=== PATIENT | male | born 1940 | race Hispanic/Latino ===

== ENCOUNTER 2018-12-14 09:44 | Observation (INO) | payer MEDICARE, OTHER ==
--- NOTE | 2018-12-14 10:19 | ED PDOC ---
Arrival/HPI - General Chief Complaint: Cough, Cold, Congestion Time Seen by Provider: 12/14/18 10:10 Historian: Patient - History of Present Illness Narrative History of Present Illness (Text): 12/14/18 10:10 78 y/o male, pmh including gout/alzheimer?/Echo from 11/14/2017 show pulmonary htn with LVEF 55%, allergic to sulfa, c/o cough x 1 week with sob on exertion. Pt. stated that he has been coughing x 1 week, productive coughing, sob on exertion, went to the [facility] urgent care and advised to come to the ER for evaluation. Pt. is here at the ER with ekg performed show new onset a.fibb with rate control 84 bpm, no chest pain or palpitation, no numbness or tingling, no tearing pain, no night sweat, no other medical or psychological complaints. PMD: Dr. Fred Najera. Past Medical History - Provider Review Nursing Documentation Reviewed: Yes Primary Care Provider: Fred Brown - Infectious Disease Hx of Infectious Diseases: None - Cardiac Hx Heart Murmur: Yes Other/Comment: goes to Cardiac rehab 3xweekly - Neurological Hx Dementia: Yes - Musculoskeletal/Rheumatological Hx Gout: Yes - Psychiatric Hx Substance Use: No - Surgical History Hx Orthopedic Surgery: Yes (knee sx) Other/Comment: Lap band surgery - Anesthesia Hx Anesthesia: Yes Hx Anesthesia Reactions: Yes ("frozen bladder & intestines") Family/Social History - Physician Review Nursing Documentation Reviewed: Yes Family/Social History: Unknown Family HX Smoking Status: Never Smoked Hx Alcohol Use: No Hx Substance Use: No Allergies/Home Meds Allergies/Adverse Reactions: Allergies Sulfa (Sulfonamide Antibiotics) Allergy (Verified 12/14/18 09:53) RASH Home Medications: Home Meds Medication Instructions Recorded Confirmed Allopurinol [Zyloprim] 300 mg PO DAILY 12/14/18 12/14/18 Aspirin [Aspirin Chewable] 81 mg PO DAILY 12/14/18 12/14/18 Gabapentin [Neurontin] 300 mg PO DAILY 12/14/18 12/14/18 Memantine [Namenda] 10 mg PO DAILY 12/14/18 12/14/18 Primidone [Mysoline] 50 mg PO DAILY 12/14/18 12/14/18 Review of Systems - Review of Systems Constitutional: absent: Fatigue, Fevers Eyes: absent: Vision Changes ENT: absent: Hearing Changes Respiratory: SOB, Cough, Sputum. absent: Wheezing Cardiovascular: absent: Chest Pain, Syncope Gastrointestinal: absent: Abdominal Pain, Diarrhea, Nausea, Vomiting Musculoskeletal: absent: Arthralgias, Back Pain Skin: absent: Rash, Pruritis, Skin Lesions Hemo/Lymphatic: absent: Adenopathy, Easy Bleeding, Easy Bruising Psychiatric: absent: Anxiety, Depression, Suicidal Ideation Physical Exam Vital Signs Reviewed: Yes Vital Signs Temp Pulse Resp BP Pulse Ox 12/14/18 09:54 98.3 F 88 18 152/97 H 95 Temperature: Afebrile Blood Pressure: Normal Pulse: Regular Respiratory Rate: Normal Appearance: Positive for: Well-Appearing, Non-Toxic, Comfortable Pain Distress: None Mental Status: Positive for: Alert and Oriented X 3 - Systems Exam Head: Present: Atraumatic, Normocephalic Pupils: Present: PERRL Extroacular Muscles: Present: EOMI Conjunctiva: Present: Normal Mouth: Present: Moist Mucous Membranes Neck: Present: Normal Range of Motion Respiratory/Chest: Present: Clear to Auscultation, Good Air Exchange, Rhonchi. No: Respiratory Distress, Accessory Muscle Use, Wheezes, Decreased Breath Sounds, Rales, Retracting, Tachypneic, Tender to Palpation Cardiovascular: Present: Irregular Rhythm, Peripheal Pulses Present, Other (no pedal edema) Abdomen: Present: Normal Bowel Sounds. No: Tenderness, Distention, Peritoneal Signs, Rebound, Guarding, Rovsing's Sign Present, Scars Back: Present: Normal Inspection. No: CVA Tenderness, Midline Tenderness, Paraspinal Tenderness, Decubitus Ulcer Upper Extremity: Present: Normal Inspection. No: Cyanosis, Edema Lower Extremity: Present: Normal Inspection. No: Edema Neurological: Present: GCS=15, CN II-XII Intact, Speech Normal, Motor Func Grossly Intact, Normal Cerebellar Funct, Gait Normal, Memory Normal Skin: Present: Warm, Dry, Normal Color. No: Rashes Psychiatric: Present: Alert, Oriented x 3, Normal Insight, Normal Concentration Medical Decision Making ED Course and Treatment: 12/14/18 10:25 -labs -ekg -cxr -oxygen 2L -aspirin -classroom monitor -Observe and reassess 12/14/18 11:16 -Echo from 11/14/2017 show pulmonary htn with LVEF 55% -EKG: Katharinefibb @ 84 BPM, T wave inversion V2-V5, no ST elevation or depression, no T wave inversion. -Based on the [id number], he will need to be anticoagulated. Lovenox ordered. Pt. has no black or brown color stool, no rectal bleeding, refused guiac, -Chest xray There is a minimal patchy infiltrate in the right lower lobe. No evidence of CHF -Labs show no acute findings -Trop is negative -BNP 901, no signs of CHF, likely heart strain -I spoke to Dr. Najera and he examined the patient in person, agreed to admit the patient with Dr. Angulo on the routine consult. IV rocephine and azithromycin started. Lovenox ordered Disposition/Present on Arrival - Present on Arrival Any Indicators Present on Arrival: No History of DVT/PE: No History of Uncontrolled Diabetes: No Urinary Catheter: No History of Decub. Ulcer: No History Surgical Site Infection Following: None - Disposition Have Diagnosis and Disposition been Completed?: Yes Diagnosis: Pneumonia, Atrial fibrillation Disposition: HOSPITALIZED Disposition Time: 11:33 Patient Plan: Admission, Observation, Telemetry Condition: GUARDED
[2018-12-14 10:55] LABS: BASO # 0.03 K/mm3 (0.0-2.0); BASO % 0.4 % (0.0-3.0); EOS # 0.1 (0.0-0.7); EOS % 1.9 % (1.5-5.0); HEMOGLOBIN 14.9 g/dL (14.0-18.0); LYMPH # 1.3 (1.2-3.4); LYMPH % 17.3 % (22.0-35.0); MEAN CELL VOLUME 93.7 fl (80.0-105.0); MEAN CORPUSCULAR HEMOGLOBIN 31.4 pg (25.0-35.0); MEAN CORPUSCULAR HGB CONC 33.5 g/dl (31.0-37.0); MONO # 0.9 (0.1-0.6); MONO % 11.5 % (1.0-6.0); RBC 4.75 10^6/uL (3.5-6.1); RED CELL DISTRIBUTION WIDTH 14.7 % (11.5-14.5); WHITE BLOOD COUNT 7.4 10^3/uL (4.5-11.0)
[2018-12-14 10:58] LABS: ALB/GLOB RATIO 1.4 (1.1-1.8); ALBUMIN 4.3 g/dL (3.0-4.8); ALT/SGPT 24 U/L (7-56); AST/SGOT 28 U/L (17-59); BLOOD UREA NITROGEN 20 mg/dL (7-21); CALCIUM 9.1 mg/dL (8.4-10.5); GFR NON-AFRICAN AMERICAN > 60
--- NOTE | 2018-12-14 11:00 | RAD ---
Date of service: 12/14/2018 HISTORY: cough x 1 week, new onset a.fibb, chf? COMPARISON: No prior. TECHNIQUE: 1 view obtained. FINDINGS: LUNGS: There is a minimal patchy infiltrate in the right lower lobe PLEURA: No significant pleural effusion identified, no pneumothorax apparent. CARDIOVASCULAR: Minimal aortic calcification Normal cardiac size. No pulmonary vascular congestion. OSSEOUS STRUCTURES: No significant abnormalities. VISUALIZED UPPER ABDOMEN: Normal. OTHER FINDINGS: None. IMPRESSION: There is a minimal patchy infiltrate in the right lower lobe. No evidence of CHF
[2018-12-14 11:04] LABS: INR 1.04; PARTIAL THROMBOPLASTIN TIME 26.8 Seconds (26.9-38.3); PROTHROMBIN TIME 11.8 SECONDS (9.4-12.5)
[2018-12-14 11:10] LABS: B-TYPE NATRIURETIC PEPTIDE 901 pg/mL (0-450); TROPONIN I < 0.01 ng/mL
[2018-12-14] MEDS ORDERED: Azithromycin 500MG/NS 250ml 500 MG/250 ML BAG IVPB STA (11:13)
[2018-12-14] MEDS ORDERED: cefTRIAXone 1 gm 1 GM/100 ML BAG IVPB STA (11:13)
[2018-12-14 11:15] LABS: FREE T4 0.87 ng/dL (0.78-2.19)
[2018-12-14] MEDS ORDERED: Enoxaparin 150 mg Syringe SC STA (11:32)
[2018-12-14] MEDS ORDERED: Albuterol-Ipratrop 3 mg / 0.5 (3 ml) UD IH PRN (11:52)
--- NOTE | 2018-12-14 12:56 | CP.PCM.HP ---
<Prasad Cohn - Last Filed: 12/14/18 17:19> History of Present Illness - History of Present Illness History of Present Illness: H&P for Dr. Brown Service CC: productive cough and SOB with exertion HPI: 78 M with a PMHx of gout, pulmonary HTN, [place] [facility] [place] visiting [place] care center. Patient has had a productive cough for approximately 1 week, generally with whitish sputum. Patient also noted dyspnea on exertion that prompted him to visit the urgent care, and subsequently was sent to [place] [facility] Patient while in ED, EKG showed new onset a fib without RVR. Patient was seen and examined at bedside. Patient denied fevers, chills, chest pains, abdominal pains , nausea, vomiting, diarrhea, constipation or dysuria. PMHx: gout, pulmonary HTN, heart murmur PSHx: Knee repair, lap band surgery, cholecystectomy SHx: occasional wine, never smoked tobacco, denied illicit drugs FamHx: NC Meds: MAR reviewed Allergies: Sulfa Present on Admission - Present on Admission Any Indicators Present on Admission: No Review of Systems - Review of Systems Review of Systems: as per HPI otherwise negative Past Patient History - Infectious Disease Hx of Infectious Diseases: None - Past Social History Smoking Status: Never Smoked - CARDIAC Hx Heart Murmur: Yes Other/Comment: goes to Cardiac rehab 3xweekly - NEUROLOGICAL Hx Dementia: Yes - MUSCULOSKELETAL/RHEUMATOLOGICAL Hx Gout: Yes - PSYCHIATRIC Hx Substance Use: No - SURGICAL HISTORY Hx Orthopedic Surgery: Yes (knee sx) Other/Comment: Lap band surgery - ANESTHESIA Hx Anesthesia: Yes Hx Anesthesia Reactions: Yes ("frozen bladder & intestines") Meds Allergies/Adverse Reactions: Allergies Allergy/AdvReac Type Severity Reaction Status Date / Time Sulfa (Sulfonamide Allergy RASH Verified 12/14/18 09:53 Antibiotics) Physical Exam - Constitutional Appears: No Acute Distress - Head Exam Head Exam: ATRAUMATIC, NORMAL INSPECTION, NORMOCEPHALIC - Eye Exam Eye Exam: EOMI, Normal appearance, PERRL Pupil Exam: NORMAL ACCOMODATION, PERRL - ENT Exam ENT Exam: Mucous Membranes Moist, Normal Exam - Neck Exam Neck exam: Positive for: Normal Inspection - Respiratory Exam Respiratory Exam: Decreased Breath Sounds, Rhonchi, NORMAL BREATHING PATTERN. absent: Respiratory Distress - Cardiovascular Exam Cardiovascular Exam: Irregular Rhythm, +S1, +S2 - GI/Abdominal Exam GI & Abdominal Exam: Normal Bowel Sounds, Soft. absent: Tenderness - Extremities Exam Extremities exam: Positive for: pedal edema (trace b/l) - Neurological Exam Neurological exam: Alert, CN II-XII Intact, Normal Gait, Oriented x3, Reflexes Normal - Psychiatric Exam Psychiatric exam: Normal Affect, Normal Mood - Skin Skin Exam: Dry, Intact, Normal Color, Warm Results - Vital Signs Recent Vital Signs: Last Vital Signs Temp 98.3 F 12/14/18 09:54 Pulse 88 12/14/18 09:54 Resp 18 12/14/18 09:54 BP 152/97 H 12/14/18 09:54 Pulse Ox 95 12/14/18 09:54 - Labs Result Diagrams: 12/14/18 10:33 12/14/18 10:33 Labs: Laboratory Results - last 24 hr 12/14/18 12/14/18 12/14/18 10:33 10:33 10:33 WBC 7.4 RBC 4.75 Hgb 14.9 Hct 44.5 MCV 93.7 D MCH 31.4 MCHC 33.5 RDW 14.7 H Plt Count 179 MPV 11.0 Neut % (Auto) 68.9 H Lymph % (Auto) 17.3 L Guadalupe % (Auto) 11.5 H Eos % (Auto) 1.9 Baso % (Auto) 0.4 Lymph # (Auto) 1.3 Guadalupe # (Auto) 0.9 H Eos # (Auto) 0.1 Baso # (Auto) 0.03 Absolute Neuts (auto) 5.09 PT 11.8 INR 1.04 APTT 26.8 L Sodium 139 Potassium 4.2 Chloride 103 Carbon Dioxide 27 Anion Gap 13 BUN 20 Creatinine 0.9 Est GFR ( Amer) > 60 Est GFR (Non-Af Amer) > 60 Random Glucose 88 Calcium 9.1 Magnesium 1.9 Total Bilirubin 0.8 AST 28 ALT 24 Alkaline Phosphatase 91 Troponin I < 0.01 NT-Pro-B Natriuret Pep 901 H Total Protein 7.4 Albumin 4.3 Globulin 3.1 Albumin/Globulin Ratio 1.4 Free T4 TSH 3rd Generation 12/14/18 10:33 WBC RBC Hgb Hct MCV MCH MCHC RDW Plt Count MPV Neut % (Auto) Lymph % (Auto) Guadalupe % (Auto) Eos % (Auto) Baso % (Auto) Lymph # (Auto) Guadalupe # (Auto) Eos # (Auto) Baso # (Auto) Absolute Neuts (auto) PT INR APTT Sodium Potassium Chloride Carbon Dioxide Anion Gap BUN Creatinine Est GFR ( Amer) Est GFR (Non-Af Amer) Random Glucose Calcium Magnesium Total Bilirubin AST ALT Alkaline Phosphatase Troponin I NT-Pro-B Natriuret Pep Total Protein Albumin Globulin Albumin/Globulin Ratio Free T4 0.87 TSH 3rd Generation 1.83 Assessment & Plan - Assessment and Plan (Free Text) Assessment: New onset afib rate controlled Rt Lower lobe pna Cardiac rehab heeart murmur gout pulmonary htn dementia essential tremor Plan: Patient admitted to tele for monitoring of new onset afib. Patient anticoagulation initiated, will obtain echo. Dr. Angulo consulted, will appreciate recommendations. Rocephin and azithromycin for rt lower lobe pna, follow up sputum cx, blood cx, no leukocytosis. FU cxr. Patient on allopurinol for gout, memantine for dementia. primadone for essential tremors. Duonebs for dyspnea. Robitussin for cough. Heart healthy diet. PT eval Discussed with Dr. Brown <Fred Brown S - Last Filed: 12/14/18 19:58> Results - Vital Signs Recent Vital Signs: Last Vital Signs Temp 98.6 F 12/14/18 17:26 Pulse 80 12/14/18 18:00 Resp 19 12/14/18 17:26 BP 147/89 12/14/18 18:34 Pulse Ox 95 12/14/18 09:54 - Labs Result Diagrams: 12/14/18 10:33 12/14/18 10:33 Labs: Laboratory Results - last 24 hr 12/14/18 12/14/18 12/14/18 10:33 10:33 10:33 WBC 7.4 RBC 4.75 Hgb 14.9 Hct 44.5 MCV 93.7 D MCH 31.4 MCHC 33.5 RDW 14.7 H Plt Count 179 MPV 11.0 Neut % (Auto) 68.9 H Lymph % (Auto) 17.3 L Guadalupe % (Auto) 11.5 H Eos % (Auto) 1.9 Baso % (Auto) 0.4 Lymph # (Auto) 1.3 Guadalupe # (Auto) 0.9 H Eos # (Auto) 0.1 Baso # (Auto) 0.03 Absolute Neuts (auto) 5.09 PT 11.8 INR 1.04 APTT 26.8 L Sodium 139 Potassium 4.2 Chloride 103 Carbon Dioxide 27 Anion Gap 13 BUN 20 Creatinine 0.9 Est GFR ( Amer) > 60 Est GFR (Non-Af Amer) > 60 Random Glucose 88 Calcium 9.1 Magnesium 1.9 Total Bilirubin 0.8 AST 28 ALT 24 Alkaline Phosphatase 91 Troponin I < 0.01 NT-Pro-B Natriuret Pep 901 H Total Protein 7.4 Albumin 4.3 Globulin 3.1 Albumin/Globulin Ratio 1.4 Free T4 TSH 3rd Generation 12/14/18 12/14/18 10:33 15:44 WBC RBC Hgb Hct MCV MCH MCHC RDW Plt Count MPV Neut % (Auto) Lymph % (Auto) Guadalupe % (Auto) Eos % (Auto) Baso % (Auto) Lymph # (Auto) Guadalupe # (Auto) Eos # (Auto) Baso # (Auto) Absolute Neuts (auto) PT INR APTT Sodium Potassium Chloride Carbon Dioxide Anion Gap BUN Creatinine Est GFR ( Amer) Est GFR (Non-Af Amer) Random Glucose Calcium Magnesium Total Bilirubin AST ALT Alkaline Phosphatase Troponin I < 0.01 NT-Pro-B Natriuret Pep Total Protein Albumin Globulin Albumin/Globulin Ratio Free T4 0.87 TSH 3rd Generation 1.83 Assessment & Plan - Assessment and Plan (Free Text) Assessment: Pt seen and examined by me. I have reviewed the note of the medical claims processor and I agree with it. I have discussed the assessment and plan with the resident. I have reviewed the medications and the last labs.
[2018-12-14 16:14] VITALS: BMI 38.2
[2018-12-14] MEDS ORDERED: Pneumococcal 23-Valent Vaccine IM ONE (16:17)
[2018-12-14] MEDS ORDERED: guaiFENesin DM 200 mg-20 mg/10 ml UD PO PRN (18:02)
[2018-12-14] MEDS ORDERED: Enoxaparin 150 mg Syringe SC SCH (22:00)
--- NOTE | 2018-12-14 22:17 | CARD ---
APPROVED REPORT Date of service: 12/14/2018 EKG Measurement Heart [id number] <Conclusion> Atrial fibrillation Nonspecific T wave abnormalitis Abnormal ECG
--- NOTE | 2018-12-14 23:24 | CON ---
DATE: 12/14/2018 CONSULT SERVICE: Cardiology. REASON FOR CONSULTATION: Followup of productive cough, shortness of breath on exertion, new onset of atrial fibrillation, and cardiac evaluation. BRIEF CLINICAL HISTORY: This 78-year-old male with past medical history significant for gout, pulmonary hypertension, obstructive sleep apnea was on CPAP, did not use for the last 10 years, recently seen by Dr. Carrillo, restarted, but did not like it and so did not use, who came to the emergency room after being brought by the who is a retired RN because the patient was having productive cough, dyspnea on exertion, and shortness of breath. Patient was taken to the urgent care center where he was told that the patient has congestive heart failure and needs to be seen by a inclusion paraeducator, but patient waited and ultimately came to the [facility]. EKG on admission to the ER, found to be in AFib with rapid ventricular rate. Patient denies any chest pain. Denies any palpitations. PAST MEDICAL HISTORY: Significant for gout, pulmonary hypertension, heart murmur when he was young. PAST SURGICAL HISTORY: Significant for gastric bypass many years ago, cholecystectomy 8 years ago, total knee joint replacement, left 5 years ago. SOCIAL HISTORY: Denies any smoking. Denies any alcohol abuse. Denies any substance abuse. Socially drinks. FAMILY HISTORY: Noncontributory. CURRENT MEDICATIONS: Patient is taking primidone 50 mg daily, Namenda 10 mg daily, gabapentin, Neurontin 300 mg daily, aspirin 325 mg daily, allopurinol 300 mg daily. REVIEW OF SYSTEMS: As per HPI. PHYSICAL EXAMINATION: GENERAL: Height of the patient 6 feet 2 inches, weight of the patient 298 pounds, and body mass index 38.3 kg/m2. VITAL SIGNS: Temperature afebrile, heart rate 85, and blood pressure 147/89. HEENT: PERRLA. Extraocular muscles intact. NECK: Supple. No carotid bruits or thyromegaly. CHEST: Clear to auscultation. HEART: S1 and S2 regular. ABDOMEN: Soft. EXTREMITIES: Clubbing and cyanosis negative. LABORATORY DATA: WBC 7.4, hemoglobin 14.9, hematocrit 44.5, and platelet count 179. Chemistry shows sodium 139, potassium 4, chloride 103, CO2 of 27, anion gap 13, BUN 20, and creatinine 0.9. Troponin is 0.01 negative. BNP 908. Chest x-ray; very poor under-penetrated films, unable to comment, but aptly does not looks like any pulmonary edema. Patient's previous cardiac workup on 11/14/2017 shows pulmonary hypertension with ejection fraction 55%, read by Dr. Pantoja. Echo on 11/14/2017 showed ejection fraction 55%, normal LV function, [id number] mitral regurgitation, mild tricuspid regurgitation, RV systolic pressure 40. IMPRESSION: A 78-year-old morbidly obese male with past medical history significant for obstructive sleep apnea, gout, admitted with one-week history of coughing and bronchitis type of symptoms, and admitted with shortness of breath. Chest x-ray poor quality, cannot comment on congestive heart failure if it is very mild, BNP 900, few basal crackles. Prior history of obstructive sleep apnea, noncompliance with the continuous positive airway pressure machine, not using for more than 8 years. Recently seen by Dr. Carrillo, started, but the patient did not follow up and is not using continuous positive airway pressure. Admitted with acute bronchitis symptoms and maybe some element of congestive heart failure. PATIENT IS ALLERGIC TO SULFA, we will start Bumex. New onset of atrial fibrillation stress can cause congestive heart failure, by acute bronchitis symptoms. RECOMMENDATIONS: Broad-spectrum antibiotics to treat the acute bronchitis. We will start a low dose of Bumex, get echo, lipid profile, TSH and hemoglobin A1c. CHADS2 score will be high and so we will start anticoagulation. Consider a stress test on Monday if the troponin remains flat; so far, troponin remains x2 negative. No evidence of acute ID. No anginal symptoms. If troponin remains flat, we will consider a stress test on Monday. Further recommendations will depend on the hospital course. We will follow with you. Thank you Dr. Zeng, for providing us the opportunity in taking care of the patient, Thomas Cantrell. Shannen Angulo MD
--- NOTE | 2018-12-15 00:34 | HP ---
DATE OF EXAM: 12/14/2018 HISTORY OF PRESENT ILLNESS: The patient was seen and examined. I do agree with the note of the medical technologist generalist. I was involved in the plan of care. The patient was having productive cough and shortness of breath. He said the cough is getting worse. He had gone to an urgent care center and was not feeling well, so he was sent to the emergency room. EKG done showed new onset atrial fibrillation without rapid rate. He was admitted to the hospital for further evaluation. PLAN: The patient will be started on anticoagulation. Dr. Angulo from Cardiology has been consulted. The patient's , Isabel, a natural resources extension educator in the hospital was updated. The patient has trace edema in his legs. stable. He is going to be placed on Rocephin and azithromycin for right lower lobe pneumonia. The patient has gout history. He is currently comfortable. He is going to be on aspirin for his coronary disease. He is receiving nebulizer treatments. He is going to be on allopurinol for his gout. Fred Brown MD
[2018-12-15 05:45] VITALS: O2SAT 96
[2018-12-15 07:22] LABS: BASO # 0.04 K/mm3 (0.0-2.0); BASO % 0.6 % (0.0-3.0); EOS # 0.2 (0.0-0.7); EOS % 2.2 % (1.5-5.0); HEMOGLOBIN 14.7 g/dL (14.0-18.0); LYMPH # 1.2 (1.2-3.4); LYMPH % 16.8 % (22.0-35.0); MEAN CORPUSCULAR HEMOGLOBIN 30.4 pg (25.0-35.0); MEAN CORPUSCULAR HGB CONC 32.3 g/dl (31.0-37.0); MONO # 0.7 (0.1-0.6); MONO % 10.8 % (1.0-6.0); RBC 4.84 10^6/uL (3.5-6.1); RED CELL DISTRIBUTION WIDTH 14.6 % (11.5-14.5); WHITE BLOOD COUNT 6.8 10^3/uL (4.5-11.0)
[2018-12-15 07:30] LABS: INR 1.17; PARTIAL THROMBOPLASTIN TIME 32.9 Seconds (26.9-38.3); PROTHROMBIN TIME 13.2 SECONDS (9.4-12.5)
[2018-12-15 07:35] LABS: ALB/GLOB RATIO 1.4 (1.1-1.8); ALBUMIN 4.4 g/dL (3.0-4.8); ALT/SGPT 27 U/L (7-56); AST/SGOT 28 U/L (17-59); BLOOD UREA NITROGEN 18 mg/dL (7-21); CALCIUM 9.1 mg/dL (8.4-10.5); GFR NON-AFRICAN AMERICAN > 60; HDL CHOLESTEROL 57 mg/dL (29-60)
[2018-12-15 07:45] LABS: LDL CHOLESTEROL 77 mg/dL (0-129)
--- NOTE | 2018-12-15 08:12 | CP.PCM.PN ---
Subjective - Date & Time of Evaluation Date of Evaluation: 12/15/18 Time of Evaluation: 06:55 - Subjective Subjective: Awake, feels okay,no distress Reason for consultation and follow up: Cardiac evaluation and follow up of new onset atrial fibrillation, admitted for shortness of breath Seen and examined by me and Dr. Beaulieu Objective - Vital Signs/Intake and Output Vital Signs (last 24 hours): Temp Pulse Resp BP Pulse Ox 98.7 F 75 20 114/73 96 12/15/18 05:44 12/15/18 05:44 12/15/18 05:44 12/15/18 05:44 12/15/18 05:44 Intake and Output: 12/15/18 12/15/18 06:59 18:59 Intake Total 958 Balance 958 - Medications Medications: Current Medications Albuterol/Ipratropium (Duoneb 3 Mg/0.5 Mg (3 Ml) Ud) 3 ml IH Q2H PRN PRN Reason: Shortness of Breath Allopurinol (Zyloprim) 300 mg PO DAILY DALIA Apixaban (Eliquis) 5 mg PO BID [facility]; Protocol Last Admin: 12/14/18 18:06 Dose: 5 mg Aspirin (Ecotrin) 81 mg PO DAILY DALIA Furosemide (Lasix) 40 mg IV DAILY DALIA Guaifenesin/Dextromethorphan (Robitussin Dm) 10 ml PO Q4H PRN PRN Reason: Cough Ceftriaxone Sodium (Rocephin 1 Gram Ivpb) 1 gm in 100 mls @ 100 mls/hr IVPB DAILY [facility]; Protocol Azithromycin (Zithromax 500mg In Ns) 500 mg in 250 mls @ 167 mls/hr IVPB DAILY DALIA; Protocol Memantine (Namenda) 10 mg PO DAILY DALIA Primidone (Mysoline) 50 mg PO HS [facility] Last Admin: 12/14/18 21:44 Dose: 50 mg - Labs Labs: 12/15/18 06:30 12/15/18 06:30 PT 13.2 SECONDS (9.4-12.5) H 12/15/18 06:30 INR 1.17 12/15/18 06:30 APTT 32.9 Seconds (26.9-38.3) 12/15/18 06:30 - Constitutional Appears: Non-toxic, No Acute Distress - Head Exam Head Exam: NORMAL INSPECTION, NORMOCEPHALIC - Eye Exam Eye Exam: Normal appearance Pupil Exam: NORMAL ACCOMODATION - ENT Exam ENT Exam: Mucous Membranes Moist, Normal Exam - Respiratory Exam Respiratory Exam: Decreased Breath Sounds, NORMAL BREATHING PATTERN - Cardiovascular Exam Cardiovascular Exam: Irregular Rhythm, +S1, +S2 Additional comments: Atrial fibrillation 70's - GI/Abdominal Exam GI & Abdominal Exam: Soft, Normal Bowel Sounds - Extremities Exam Extremities Exam: Full ROM, Normal Capillary Refill - Neurological Exam Neurological Exam: Alert, Awake, Oriented x3 - Psychiatric Exam Psychiatric exam: Normal Affect, Normal Mood - Skin Skin Exam: Dry, Normal Color, Warm Assessment and Plan - Assessment and Plan (Free Text) Assessment: A 78 year old morbidly obese male who was [place] [facility] [place] care due to atrial fibrillation on EKG. He was at urgent care center due to productive cough x 1 week. History of hypertension, obstructive sleep apnea with CPAP but not compliant for the past 10 years, pulmonary hypertension, gout, gastric bypass, cholecystectomy,total left knee joint replacement. Chest X ray showed no vascular congestion, right lower lobe infiltrate. Admitted for new onset atrial fibrillation and pneumonia. IV antibiotics started. Eliquis started for atrial fibrillation. Atrial fibrillation rate controlled. Troponin remains negative. Cardiac status stable. For Echo today to evaluate LV function. May discharge patient from cardiac standpoint. Will schedule for out patient stress test. Will reevaluate atrial fibrillation in the office and if still Afib, will schedule for ST[facility]LEY with cardioversion. Plan: Denies shortness of breath, some coughing Heart rate controlled, atrial fibrillation 70's On Eliquis Blood pressure stable Cardiac status stable On Eliquis 5 mg BID,ASA 81 mg daily, Lasix 40 mg daily Continue IV antibiotics as ordered For Echo today to evaluate LV function. Continue current treatment Continue current medications May discharge patient from cardiac standpoint Will schedule for out patient stress test. Follow up in office 2-3 weeks plan and treatment discussed with Dr. Beaulieu
[2018-12-15] MEDS ORDERED: cefTRIAXone 1 gm 1 GM/100 ML BAG IVPB SCH (10:00)
[2018-12-15] MEDS ORDERED: Azithromycin 500MG/NS 250ml 500 MG/250 ML BAG IVPB SCH (10:00)
[2018-12-15 12:46] VITALS: BP 107/73; PULSE 70; RESP 18; TEMP 97.7
--- NOTE | 2018-12-15 15:30 | CARD ---
APPROVED REPORT Date of service: 12/15/2018 EXAM: Two-dimensional and M-mode echocardiogram with Doppler and color Doppler. INDICATION Atrial Fibrillation 2D DIMENSIONS Left Atrium (2D)4.8 (1.6-4.0cm)IVSd1.1 (0.7-1.1cm) LVDd4.3 (3.9-5.9cm)PWd1.2 (0.7-1.1cm) LVDs2.9 (2.5-4.0cm)FS (%) 31.9 % LVEF (%)60.4 (>50%) M-Mode DIMENSIONS Aortic Root3.70 (2.2-3.7cm)Aortic Cusp Exc.1.60 (1.5-2.0cm) Aortic Valve AoV Peak Kzigtnmy349.0cm/Twyla Peak GR.6mmHg Mitral Valve E/A ratio0.0 TDI E/Lateral E'0.0E/Medial E'0.0 Pulmonary Valve PV Peak Eiteifje79.4cm/sPV Peak Grad.3mmHg Tricuspid Valve TR Peak Bwqtqxds755mn/sRAP [id number] Peak Gr.25mmHg [id number] LEFT VENTRICLE The left ventricle is normal size. There is normal left ventricular wall thickness. The left ventricular function is normal. The left ventricular ejection fraction is within the normal range. There is normal LV segmental wall motion. A Fib RIGHT VENTRICLE The right ventricle is normal size. There is normal right ventricular wall thickness. The right ventricular systolic function is normal. ATRIA The left atrium is mildly dilated. The right atrium size is normal. AORTIC VALVE The aortic valve is mildly sclerotic. No aortic regurgitation is present. There is no aortic valvular stenosis. MITRAL VALVE The mitral valve is mildly thickened. There is no mitral valve regurgitation noted. There is no mitral valve stenosis. TRICUSPID VALVE There is mild tricuspid regurgitation. There is mild pulmonary hypertension. PULMONIC VALVE The pulmonary valve is normal in structure. There is trace pulmonic valvular regurgitation. GREAT VESSELS The aortic root is normal in size. The IVC is normal in size and collapses >50% with inspiration. PERICARDIAL EFFUSION There is no pericardial effusion. <Conclusion> The left ventricle is normal size. There is normal left ventricular wall thickness. The left ventricular function is normal. The left ventricular ejection fraction is within the normal range. There is normal LV segmental wall motion. There is mild tricuspid regurgitation. There is mild pulmonary hypertension.
--- NOTE | 2018-12-15 16:12 | RAD ---
Date of service: 12/15/2018 HISTORY: cough pna COMPARISON: 12/14/2018 TECHNIQUE: 1 view obtained. FINDINGS: LUNGS: No active pulmonary disease. PLEURA: No significant pleural effusion identified, no pneumothorax apparent. CARDIOVASCULAR: No aortic atherosclerotic calcification present. Normal cardiac size. No pulmonary vascular congestion. OSSEOUS STRUCTURES: No significant abnormalities. VISUALIZED UPPER ABDOMEN: Normal. OTHER FINDINGS: None. IMPRESSION: No active disease.
--- NOTE | 2018-12-15 20:23 | CARD ---
APPROVED REPORT Date of service: 12/15/2018 EKG Measurement Heart [id number] <Conclusion> Atrial fibrillation NDSTT abnormalities Abnormal ECG
--- NOTE | 2018-12-16 02:05 | DS ---
HOSPITAL COURSE: The patient was initially admitted to the hospital because of shortness of breath. He was found to have new onset atrial fibrillation. The patient was seen by Dr. Angulo and started on anticoagulation. The patient states he does feel well. His heart rate is controlled. He has no complaints of any headaches or dizziness. No nausea, no vomiting. He is due for stress test that is going to be done in 2 days, on Monday. He was seen by Dr. Angulo and Dr. Beaulieu. The patient was cleared to be discharged. He had a chest x-ray that was normal and so no infiltrates were seen. He does not have pneumonia. So, we will discontinue his antibiotics. PHYSICAL EXAMINATION: VITAL SIGNS: Temperature 97.7, pulse is 70, blood pressure is 107/73, respirations 18. GENERAL: The patient is lying in bed, flat, comfortable. HEENT: No oral lesion. Anicteric sclerae. Moist mucosa. NECK: No JVD, adenopathy, or thyromegaly. CARDIOVASCULAR: S1 and S2, regular. No murmurs, rubs, or gallops. LUNGS: Clear to auscultation bilaterally. No wheeze, rales, or rhonchi. ABDOMEN: Bowel sounds are positive, soft, nontender and nondistended. EXTREMITIES: No cyanosis, clubbing or edema. ASSESSMENT: 1. Atrial fibrillation, new onset. 2. Gout. 3. Pulmonary hypertension. 4. Essential tremor. 5. SULFA ALLERGY. 6. Obese with BMI of 37. PLAN: The patient is currently on Eliquis. He is going to continue as an outpatient. The patient was given Lovenox yesterday. He is on memantine for mild cognitive impairment. The patient is on Lasix. He is receiving nebulizer treatments. He is on allopurinol for his gout. CONDITION: Stable. ACTIVITIES: Increase as tolerated. Fred Brown MD
== END 2018-12-15 18:58 | disposition home or self-care (01) ==
LOC: ED 09:44 → ERH 11:14 → 2RNO 13:45
PROVIDERS: ADMIT Internal Medicine Nephrology; ATTEND Internal Medicine Nephrology
DX: I48.91 Unspecified atrial fibrillation (principal); J18.1 Lobar pneumonia, unspecified organism; J20.9 Acute bronchitis, unspecified; E66.01 Morbid (severe) obesity due to excess calories; F02.80 Dementia in other diseases classified elsewhere, unspecified severity, without behavioral disturbance, psychotic disturbance, mood disturbance, and anxiety; G25.0 Essential tremor; G30.9 Alzheimer's disease, unspecified; G47.33 Obstructive sleep apnea (adult) (pediatric); I11.0 Hypertensive heart disease with heart failure; I27.20 Pulmonary hypertension, unspecified; I50.9 Heart failure, unspecified; M10.9 Gout, unspecified; Z68.37 Body mass index [BMI] 37.0-37.9, adult; Z88.2 Allergy status to sulfonamides; Z91.19 Patient's noncompliance with other medical treatment and regimen; Z96.652 Presence of left artificial knee joint; Z98.84 Bariatric surgery status
CPT/HCPCS: 36415; 71045; 80053; 80061; 83036; 83735; 83880; 84100; 84439; 84443; 84484; 85025; 85610; 85730; 87040; 93005; 93306; 96365; 96372; 96375; 96376; 99282; G0378; J0456; J0696; J1650; J1940

== ENCOUNTER 2018-12-19 08:04 | Outpatient (CLI) | payer MEDICARE, OTHER | END 2018-12-19 08:05 | disposition home or self-care (01) | LOC: CARDIO 08:04 ==

== ENCOUNTER 2019-01-10 06:09 | Day surgery (SDC) | payer MEDICARE, OTHER ==
[2019-01-08 16:22] VITALS: BMI 37.7
--- NOTE | 2019-01-10 00:34 | HP ---
DATE OF EXAM: 01/09/2019 REASON FOR ADMISSION: Left heart cath, possible angioplasty and abnormal stress test. BRIEF CLINICAL HISTORY: This is a 78-year-old male with past medical history significant for gout, pulmonary hypertension, obstructive sleep apnea, was on CPAP, did not use for last 10 years, recently seen by Dr. Gerardo albertrted, but did not like it and did not use it, came to the emergency room after being brought by the who is a retired RN because the patient is having productive cough, dyspnea on exertion, and shortness of breath. The patient was taken to the [facility] where he was told that the patient had congestive heart failure, needs to be seen by nanoscience technician, but the patient ultimately came to the [facility]. EKG found to be AFib with rapid ventricular rate. Denies any chest pain, shortness of breath, or any palpitation. PAST MEDICAL HISTORY: Significant for gout and pulmonary hypertension. PAST SURGICAL HISTORY: Significant for gastric bypass many years ago, cholecystectomy 8 years ago, and total knee replacement left 5 years ago. SOCIAL HISTORY: Denies any smoking. Denies any history of alcohol abuse. Denies any history of substance abuse. Socially drinks. FAMILY HISTORY: Noncontributory. RECENT CARDIAC WORKUP FOLLOWS: The patient had a stress test dated on 12/19/2018 Lexiscan that shows technically suboptimal study probably abnormal myocardial perfusion study, partially reversible apical and distal inferolateral defect suspicious for ischemia, normal gated wall motion, and ejection fraction 54% dated on 12/19/2018. The patient had an echocardiography done on 12/15/2018 that revealed normal LV size, normal LV function, normal segmental wall motion, mild tricuspid regurgitation, mild pulmonary hypertension, and RV systolic pressure 35. The patient is found to be in AFib, left ventricular systolic function, and ejection fraction 60%. CURRENT MEDICATIONS: The patient is taking at home, primidone 50 mg daily, Namenda 10 mg daily, gabapentin 300 mg daily, furosemide 40 mg daily, aspirin 81 mg, Eliquis 5 mg daily, and allopurinol 300 mg p.o. daily. REVIEW OF SYSTEMS: As per HPI. PHYSICAL EXAMINATION: GENERAL: Height of the patient 6 feet 2 inches, weight of the patient 294 pounds, and body mass index 37.7 kg/m2. VITAL SIGNS: Temperature afebrile, heart rate 60, and blood pressure 134/80. HEENT: PERRLA. Extraocular muscles intact. NECK: Supple. No carotid bruits. No thyromegaly. CHEST: Clear to auscultation. HEART: S1 and S2 regular. ABDOMEN: Soft. EXTREMITIES: Clubbing and cyanosis negative. IMPRESSION AND PLAN: Abnormal stress test, atrial fibrillation, hypertension, chronic obstructive pulmonary disease, morbid obesity, history of left knee replacement, history of pulmonary hypertension, history of obstructive sleep apnea, was on continuous positive airway pressure, did not use for many years and very noncompliant. Recently started by Dr. Carrillo continuous positive airway pressure, who came in and admitted with productive cough, but the patient had started Eliquis because of atrial fibrillation, but the patient had abnormal stress test as outpatient, so he is scheduled for elective cardiac catheterization, possible angioplasty. We will load with Plavix and aspirin. Further recommendation after cardiac catheterization. The patient had Eliquis, last dose on Monday. Further recommendation will depend on the hospital course. We will follow with you. Thank you Dr. Brown for providing us the opportunity in taking care of the patient, Thomas Cantrell. Shannen Angulo MD
[2019-01-10 07:08] LABS: BASO # 0.04 K/mm3 (0.0-2.0); BASO % 0.6 % (0.0-3.0); EOS # 0.2 (0.0-0.7); EOS % 3.5 % (1.5-5.0); HEMOGLOBIN 15.4 g/dL (14.0-18.0); LYMPH # 1.9 (1.2-3.4); LYMPH % 29.4 % (22.0-35.0); MEAN CELL VOLUME 92.4 fl (80.0-105.0); MEAN CORPUSCULAR HEMOGLOBIN 30.6 pg (25.0-35.0); MEAN CORPUSCULAR HGB CONC 33.1 g/dl (31.0-37.0); MEAN PLATELET VOLUME 11.1 fl (7.0-11.0); MONO # 0.5 (0.1-0.6); MONO % 7.7 % (1.0-6.0); RBC 5.03 10^6/uL (3.5-6.1); RED CELL DISTRIBUTION WIDTH 14.1 % (11.5-14.5); WHITE BLOOD COUNT 6.3 10^3/uL (4.5-11.0)
[2019-01-10 07:14] LABS: INR 1.01; PARTIAL THROMBOPLASTIN TIME 32.5 Seconds (26.9-38.3); PROTHROMBIN TIME 11.4 SECONDS (9.4-12.5)
[2019-01-10 07:34] LABS: LDL CHOLESTEROL 100 mg/dL (0-129)
[2019-01-10] MEDS ORDERED: Lidocaine PF 2% (5 ml) Inj (For Cardiac Arrhy) ONE (07:34)
[2019-01-10] MEDS ORDERED: Iodixanol 320 MG/ML 200 ML BOTTLE IV ONE (07:34)
[2019-01-10] MEDS ORDERED: Iohexol 350mgl/ml 50 ML ONE (07:34)
[2019-01-10] MEDS ORDERED: Iodixanol 320 MG/ML 100 ML BOTTLE IV ONE (07:34)
[2019-01-10] MEDS ORDERED: Phenylephrine 10 mg/ml Inj ONE (07:35)
[2019-01-10] MEDS ORDERED: Verapamil 2 ML ONE (07:35)
[2019-01-10 07:36] LABS: BLOOD UREA NITROGEN 24 mg/dL (7-21); CALCIUM 9.4 mg/dL (8.4-10.5); GFR NON-AFRICAN AMERICAN > 60; HDL CHOLESTEROL 50 mg/dL (29-60)
[2019-01-10] MEDS ORDERED: Nitroglycerin 50mg in D5W 50 MG/250 ML BOTTLE IV ONE (07:36)
[2019-01-10] MEDS ORDERED: Midazolam 2 MG/2 ML VIAL ONE ×2 (08:09→08:40)
[2019-01-10] MEDS ORDERED: Eptifibatide 20 mg/10mL Inj IVP ONE (08:56)
[2019-01-10] MEDS ORDERED: Sodium Chloride 0.9% 1,000 ML IV SCH (09:30)
--- NOTE | 2019-01-10 10:26 | CPOSTOP ---
DATE: 01/10/2019 CARDIOVASCULAR LAB POST PROCEDURE NOTE DICTATING PHYSICIAN: Shannen Angulo MD RESEARCH TECHNICIAN: Josselyn logistics technician. TYPE OF ANESTHESIA: Moderate conscious sedation, total 3 mg of Versed and 100 of fentanyl given periodically. Started 1 mg of Versed and 50 of fentanyl. PRE-PROCEDURE DIAGNOSES: Unstable angina, develop chest pain, code STEMI activated. PROCEDURE PERFORMED: 1. Left heart catheterization. 2. Stenting of OM2, plain balloon angioplasty of OM1. FINDINGS: Two-vessel disease. FINAL DIAGNOSIS: Two-vessel disease, preserved left ventricular function. POST PROCEDURE CONDITION: The patient's condition is stable. VASCULAR ACCESS SITE: Left radial artery. CLOSURE DEVICE: TR-band. TOTAL RADIATION DOSE: 15345.2 milligray unit. CUMULATIVE DOSE: 2650 milligray unit. FLUORO TIME TOTAL: 7.8 minutes. TOTAL CONTRAST USED: 130 mL used. Shannen Angulo MD
--- NOTE | 2019-01-10 11:51 | CP.PCM.CON ---
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 Pt received a stent in OM2. Post procedure doing well, no complaints. Denies CP, sob, palpitations, SANTOS, dizziness. No other constitutional symptoms. PMHx as above PSHx knee replacement Meds as per EMR FHx NC Social Hx denies smoking, etoh, drug use ROS as above Review of Systems - Review of Systems Review of Systems: as per HPI Past Patient History - Infectious Disease Hx of Infectious Diseases: None - Past Social History Smoking Status: Never Smoked - CARDIAC Hx Pacemaker: No - NEUROLOGICAL Hx Paralysis: No - HEENT Hx HEENT Problems: No - RENAL Hx Chronic Kidney Disease: No - ENDOCRINE/METABOLIC Hx Endocrine Disorders: No - HEMATOLOGICAL/ONCOLOGICAL Hx Blood Transfusions: No - INTEGUMENTARY Hx Dermatological Problems: Yes (face flushed) - MUSCULOSKELETAL/RHEUMATOLOGICAL Hx Musculoskeletal Disorders: Yes - GASTROINTESTINAL Hx Gastrointestinal Disorders: Yes (obese) - GENITOURINARY/GYNECOLOGICAL Hx Genitourinary Disorders: No - PSYCHIATRIC Hx Emotional Abuse: No Hx Physical Abuse: No Hx Substance Use: No - SURGICAL HISTORY Hx Surgeries: Yes - ANESTHESIA Hx Anesthesia Reactions: Yes ("frozen bladder & intestines") Hx Malignant Hyperthermia: No Meds Allergies/Adverse Reactions: Allergies Allergy/AdvReac Type Severity Reaction Status Date / Time Sulfa (Sulfonamide Allergy RASH Verified 12/14/18 09:53 Antibiotics) - Medications Medications: Current Medications Allopurinol (Zyloprim) 300 mg PO DAILY DALIA Apixaban (Eliquis) 5 mg PO BID DALIA; Protocol Clopidogrel Bisulfate (Plavix) 75 mg PO DAILY DALIA Furosemide (Lasix) 40 mg PO DAILY DALIA Gabapentin (Neurontin) 300 mg PO DAILY DALIA; Protocol Sodium Chloride (Sodium Chloride 0.9%) 1,000 mls @ 100 mls/hr IV .Q10H DALIA Stop: 01/10/19 16:00 Memantine (Namenda) 10 mg PO DAILY DALIA Primidone (Mysoline) 50 mg PO HS DALIA Physical Exam - Constitutional Appears: Non-toxic, No Acute Distress - Head Exam Head Exam: NORMAL INSPECTION - Eye Exam Eye Exam: Normal appearance - ENT Exam ENT Exam: Mucous Membranes Moist - Respiratory Exam Respiratory Exam: Clear to Auscultation Bilateral, NORMAL BREATHING PATTERN - Cardiovascular Exam Cardiovascular Exam: Bradycardia, Irregular Rhythm, +S1, +S2 - GI/Abdominal Exam GI & Abdominal Exam: Normal Bowel Sounds, Soft - Neurological Exam Neurological exam: Alert, Oriented x3 - Psychiatric Exam Psychiatric exam: Normal Affect - Skin Skin Exam: Normal Color, Warm Results - Vital Signs Recent Vital Signs: Last Vital Signs Temp 98.4 F 01/10/19 06:30 Pulse 74 01/10/19 06:30 Resp 18 01/10/19 06:30 BP 141/79 01/10/19 06:30 Pulse Ox 95 01/10/19 06:30 - Labs Result Diagrams: 01/10/19 06:35 01/10/19 06:35 Labs: Laboratory Results - last 24 hr 01/10/19 01/10/19 01/10/19 06:35 06:35 06:35 WBC 6.3 RBC 5.03 Hgb 15.4 Hct 46.5 MCV 92.4 MCH 30.6 MCHC 33.1 RDW 14.1 Plt Count 189 MPV 11.1 H Neut % (Auto) 58.8 Lymph % (Auto) 29.4 Hamlin % (Auto) 7.7 H Eos % (Auto) 3.5 Baso % (Auto) 0.6 Lymph # (Auto) 1.9 Hamlin # (Auto) 0.5 Eos # (Auto) 0.2 Baso # (Auto) 0.04 Absolute Neuts (auto) 3.72 PT 11.4 INR 1.01 APTT 32.5 Sodium 137 Potassium 4.2 Chloride 101 Carbon Dioxide 29 Anion Gap 12 BUN 24 H Creatinine 1.1 Est GFR ( Amer) > 60 Est GFR (Non-Af Amer) > 60 Random Glucose 110 Calcium 9.4 Triglycerides 145 Cholesterol 191 LDL Cholesterol Direct 100 HDL Cholesterol 50 Blood Type Blood Type Confirm Antibody Screen BBK History Checked 01/10/19 01/10/19 06:35 08:00 WBC RBC Hgb Hct MCV MCH MCHC RDW Plt Count MPV Neut % (Auto) Lymph % (Auto) Hamlin % (Auto) Eos % (Auto) Baso % (Auto) Lymph # (Auto) Hamlin # (Auto) Eos # (Auto) Baso # (Auto) Absolute Neuts (auto) PT INR APTT Sodium Potassium Chloride Carbon Dioxide Anion Gap BUN Creatinine Est GFR ( Amer) Est GFR (Non-Af Amer) Random Glucose Calcium Triglycerides Cholesterol LDL Cholesterol Direct HDL Cholesterol Blood Type O POSITIVE Blood Type Confirm O POSITIVE Antibody Screen Negative BBK History Checked No verified bt Assessment & Plan - Assessment and Plan (Free Text) Assessment: 78yo male s/p PCI CAD s/p PCI Afib on Eliquis HTN COPD SANTIAGO Recommend: - supp o2 as needed, duonebs PRN, BIPAP at night - NO ID issues - BP control - Hold BN - ASA, Plavix, Statin - Heart healthy diet - Eliquis - GI ppx - DVT ppx - follow up cardio
[2019-01-10 14:06] LABS: BASO # 0.03 K/mm3 (0.0-2.0); BASO % 0.6 % (0.0-3.0); EOS # 0.1 (0.0-0.7); EOS % 2.9 % (1.5-5.0); HEMOGLOBIN 14.7 g/dL (14.0-18.0); LYMPH # 1.3 (1.2-3.4); LYMPH % 28.1 % (22.0-35.0); MEAN CELL VOLUME 92.2 fl (80.0-105.0); MEAN CORPUSCULAR HEMOGLOBIN 30.2 pg (25.0-35.0); MEAN CORPUSCULAR HGB CONC 32.8 g/dl (31.0-37.0); MEAN PLATELET VOLUME 10.7 fl (7.0-11.0); MONO # 0.3 (0.1-0.6); MONO % 6.9 % (1.0-6.0); RBC 4.86 10^6/uL (3.5-6.1); RED CELL DISTRIBUTION WIDTH 14.3 % (11.5-14.5); WHITE BLOOD COUNT 4.8 10^3/uL (4.5-11.0)
[2019-01-10] MEDS ORDERED: Bacitracin 500 Units/gm Oint Foilpak UD TOP ONE (14:07)
[2019-01-10 14:11] LABS: BLOOD UREA NITROGEN 20 mg/dL (7-21); CALCIUM 9.1 mg/dL (8.4-10.5); GFR NON-AFRICAN AMERICAN > 60
[2019-01-10] MEDS ORDERED: Bacitracin 500 Units/gm Oint Foilpak UD ONE (14:12)
--- NOTE | 2019-01-10 16:55 | CARD ---
APPROVED REPORT Date of service: 01/10/2019 Procedure(s) performed: Left Heart Catheterization PTCA with Stenting of OM2 with FORTINO PTCA with Balloon Angioplasty of OM1 HISTORY The patient is a 78 year-old male with a history of : most recent EF: 54%. (EF Method: RADIONUCLIDE), previous diagnostic cath, tobacco history() : The patient is a former smoker , hypertension , Hx of A fib on Eliquis had an abnormal stress test , showing apical and distal infero-lateral Ischemia.. INDICATION The indication(s) include : positive stress test, arrhythmia, atrial fibrillation. CASE TECHNIQUE The patient was brought electively to the Cardiac Catheterization Laboratory in a fasting state and was prepped and draped in a sterile manner. The left wrist was infiltrated with 2% Lidocaine subcutaneous anesthesia. A 6FR GLIDESHEATH ACCESS KIT sheath was inserted into the left radial artery without difficulty. Coronary angiography was performed using coronary diagnostic catheters. The left coronary system was accessed and visualized with a Diagnostic ,5F JL 4 CATH DXT 100 CM catheter. The right coronary system was accessed and visualized with a Diagnostic ,5F JR 4 CATH DXT 100 CM catheter. The left ventricle was accessed and visualized with a 5F JR 4 CATH DXT 100 CM catheter. Left ventricular/Aortic Valve gradient assessed on pullback. Left ventriculogram was performed in MARCIAL projection. Closure device was deployed with a Fr TR Band (Large) without any complications. The patient tolerated the procedure well and there were no complications associated with the procedure. Vessel Analysis The patient's coronary anatomy is left dominant. The left main coronary artery is a medium size vessel with diffuse calcification noted throughout this vessel and without significant stenosis. The left main bifurcates to the left anterior descending and circumflex. The left anterior descending artery is a medium size vessel with diffuse calcification noted throughout this vessel and without significant stenosis. The first diagonal branch is a medium size vessel with diffuse calcification noted throughout this vessel and without significant stenosis. The second diagonal branch is a small size vessel with diffuse calcification noted throughout this vessel and without significant stenosis. The circumflex artery is a large size vessel with diffuse calcification noted throughout this vessel and without significant stenosis. The first obtuse marginal branch is a medium size vessel with diffuse calcification noted throughout this vessel and with significant stenosis. There is a 80% stenosis in the ostial segment. The second obtuse marginal branch is a medium size vessel with diffuse calcification noted throughout this vessel and with significant stenosis. There is a 80-90% stenosis in the ostial segment. The third obtuse marginal branch is a small size vessel with diffuse calcification noted throughout this vessel and without significant stenosis. The left posterior descending artery is a medium size vessel with diffuse calcification noted throughout this vessel and without significant stenosis. The right coronary artery is a medium size vessel with diffuse calcification noted throughout this vessel and without significant stenosis. Left Ventricle The left ventricle is normal in size with normal contractility. There was no cardiomyopathy. The left ventricular ejection fraction is estimated to be 55%. The left ventricular end diastolic pressure is 6-8 mmHg. There was no gradient across the aortic valve upon pullback. PCI Technique Lesion Anticoagulation was achieved with Heparin and integrellin. Percutaneous coronary intervention was performed on the first obtuse marginal branch segment. The lesion stenosis prior to intervention was 80% with MICAH 2 flow. A 6 Fr XB 3.5 Guide Catheter was used to engage the ostium. A Luge 182 Interventional Guidewire was used to cross the lesion. BALLOON DILATION A Balloon catheter 2.5 x 6 mm Trek RX was inserted and inflated up to 10.00atm for 19seconds. Final angiography reveals 10 % stenosis with MICAH 3 flow. PCI Technique Lesion 2 Percutaneous Coronary Intervention was performed on the second obtuse marginal branch segment. The lesion stenosis prior to intervention was 90% with MICAH 2 flow. A 6 Fr XB 3.5 Guide Catheter was used to engage the ostium. A 0.014 x 182 cm Choice PT Extra Support Interventional Guidewire was used to cross the lesion. BALLOON DILATION A Balloon catheter 2.5 x 6 mm Trek RX was inserted and inflated up to 14.00atm for 22seconds. STENT DEPLOYMENT A drug-eluting stent STENT RESOLUTE SHAYY 2.75 X 08 was inserted and inflated up to 14.00atm for 22seconds. Final angiography reveals 0 % stenosis with MICAH 3 flow. 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 Successful PTCA with Fortino of OM2 and POBA of OM1 Recommendations Aggressive Medical TherapyCardiac Risk Reduction Program Weight Loss Reduction Program DC ASA, continue Eliquis for A fib and add Plavix 75 mg po daily. Consider STANLEY and cardioversion i n 3-4 weeks. CC; Dr. Gregorio Brown MD.
[2019-01-10 17:56] VITALS: PULSE 59; RESP 12
[2019-01-10 18:37] VITALS: BP 122/87; O2SAT 95
--- NOTE | 2019-01-10 19:38 | CARD ---
APPROVED REPORT Date of service: 01/10/2019 EKG Measurement Heart [id number] <Conclusion> Atrial fibrillation Abnormal ECG
--- NOTE | 2019-01-10 19:43 | CARD ---
APPROVED REPORT Date of service: 01/10/2019 EKG Measurement Heart [id number] <Conclusion> Atrial fibrillation NDSTT abnormalities Abnormal ECG
--- NOTE | 2019-01-10 19:46 | CARD ---
APPROVED REPORT Date of service: 01/10/2019 EKG Measurement Heart [id number] <Conclusion> Atrial fibrillation Nonspecific ST and T wave abnormalities Abnormal ECG
[2019-01-10 19:56] VITALS: TEMP 98
== END 2019-01-10 18:30 | disposition home or self-care (01) ==
LOC: CATH 06:09 → CCU 09:26 → CATH 18:30
PROVIDERS: ATTEND Internal Medicine Cardiovascular Disease
DX: I25.110 Atherosclerotic heart disease of native coronary artery with unstable angina pectoris (principal); I48.91 Unspecified atrial fibrillation; R94.39 Abnormal result of other cardiovascular function study; I11.0 Hypertensive heart disease with heart failure; I50.9 Heart failure, unspecified; G47.33 Obstructive sleep apnea (adult) (pediatric); I27.20 Pulmonary hypertension, unspecified; J44.9 Chronic obstructive pulmonary disease, unspecified; E66.01 Morbid (severe) obesity due to excess calories; M10.9 Gout, unspecified; Z79.01 Long term (current) use of anticoagulants; Z79.82 Long term (current) use of aspirin; Z79.899 Other long term (current) drug therapy; Z87.891 Personal history of nicotine dependence; Z88.2 Allergy status to sulfonamides; Z90.49 Acquired absence of other specified parts of digestive tract; Z91.19 Patient's noncompliance with other medical treatment and regimen; Z96.652 Presence of left artificial knee joint; Z98.84 Bariatric surgery status; Z68.37 Body mass index [BMI] 37.0-37.9, adult
CPT/HCPCS: 36415; 80048; 80061; 85025; 85175; 85610; 85730; 86850; 86900; 93005; 93458; 99152; 99153; C1725; C1769 ×3; C1874; C1887; C9606; J1327; J1644 ×2; J2250; J3010; J7030; Q9966; Q9967